=== PATIENT | male | born 1970 | race Caucasian/White ===

== ENCOUNTER 2017-02-04 11:50 | Emergency (ER) | payer BC ==
[~2017-02-04] VITALS: Ht 177.8 cm; Wt 80.0 kg
[2017-02-04] MEDS ORDERED: DEXTROSE 50%, 50ML VIAL ONE (12:12)
[2017-02-04] MEDS ORDERED: METF100010 PO (12:29)
[2017-02-04] MEDS ORDERED: PLEASE ENTER ALLERGIES MC SCH ×2 (12:30)
[2017-02-04] MEDS ORDERED: SODIUM CHLORIDE 0.9% 1,000ML IVBOLUS ONE (12:30)
[2017-02-04] MEDS ORDERED: SODIUM CHLORIDE FLUSH 10ML SYR IVF ONE (12:30)
[2017-02-04] MEDS ORDERED: DEXTROSE 50%, 50ML SYRINGE IVPush ONE ×2 (12:30→13:00)
[2017-02-04] MEDS ORDERED: INSU100V5 SQ-INSULIN (12:31)
[2017-02-04 12:38] LABS: BLOOD UREA NITROGEN 10 mg/dL (7-18)
[2017-02-04 15:04] VITALS: BP 127/83
== END 2017-02-04 16:31 | disposition home or self-care (01) ==
LOC: ED 13:05
DX: E10.649 Type 1 diabetes mellitus with hypoglycemia without coma (principal)
CPT/HCPCS: 36415; 80048; 82040; 82962; 85025; 93005; 96361; 96374; 99285; J7030